=== PATIENT | female | born 2000 | race Caucasian/White ===

== ENCOUNTER → 2021-07-01 10:45 | Outpatient (CLI) | payer BC, SELFPAY ==
--- NOTE | ~2021-07-01 | US_ITS ---
EXAMINATION: US transvaginal EXAM DATE: 07/01/2021 11:33 INDICATION: Right ovarian cyst. Right lower quadrant pain. TECHNIQUE: Pelvic transvaginal sonogram was performed. There are multiple grayscale and Doppler imag es available for interpretation. There is no prior study for comparison. FINDINGS: Uterus measures 6.8 x 3.4 x 4.1 cm, with IUD centrally located inside the endometrial cavi ty. Endometrial stripe measures 3 mm, within normal limits. There is no free pelvic fluid. Right adnexa: The ovary measures 3.8 x 2.7 x 3.3 cm and is morphologically normal. Ovarian vascular f low confirmed. Left adnexa: The ovary measures 1.7 x 1.4 x 1.9 cm and is morphologically normal. Ovarian vascular fl ow confirmed. IMPRESSION: Unremarkable pelvic ultrasound exam. Reviewed, dictated and finalized at location B. REMOVER
== END ==
PROVIDERS: Visit Provider Nurse Practitioner
DX: N83.201 Unspecified ovarian cyst, right side (principal)
CPT/HCPCS: 76830

== ENCOUNTER → 2021-09-01 12:04 | Outpatient (CLI) | payer BC, SELFPAY ==
--- NOTE | ~2021-09-01 | US_ITS ---
EXAMINATION: US transvaginal DATE: 09/01/2021 12:31 INDICATION: Missing IUD strings TECHNIQUE: Multiple endovaginal sonographic images of the pelvis were obtained. COMPARISON: 07/01/2021 FINDINGS: The uterus measures 5.2 x 3.4 x 3.7 cm. The endometrial complex measures 5 mm. The IUD appe ars to be present in the lower uterine segment. The right ovary measures 4.7 x 2.9 x 3.3 cm. The left ovary measures 4.2 x 1.8 x 2.1 cm. There is normal vascular flow in the ovaries. There is no free fl uid in the pelvis. IMPRESSION: 1. IUD appears to be in the lower uterine segment. Reviewed, dictated and finalized at location A. E TOOL DRILLER
== END ==
PROVIDERS: Visit Provider Nurse Practitioner
DX: Z30.431 Encounter for routine checking of intrauterine contraceptive device (principal)
CPT/HCPCS: 76830

== ENCOUNTER → 2021-09-19 09:03 | Outpatient (CLI) | payer BC, SELFPAY ==
--- NOTE | ~2021-09-19 | XR_ITS ---
XR shoulder LT min 2V DATE: 09/19/2021 09:32 INDICATION: Left shoulder pain TECHNIQUE: 4 views COMPARISON: None FINDINGS: No fracture or dislocation, periosteal reaction or bone destruction or abnormal soft tissue calcification. IMPRESSION: Negative Reviewed, dictated and finalized at location A. RAISING SPECIALIST IMPRESSION: Negative
== END ==
PROVIDERS: PCP Nurse Practitioner; Visit Provider Nurse Practitioner
DX: M25.512 Pain in left shoulder (principal)
CPT/HCPCS: 73030

== ENCOUNTER 2022-04-24 14:41 | Outpatient (CLI) | payer BC, SELFPAY ==
--- NOTE | ~2022-04-24 | US_ITS ---
EXAMINATION: US pelvic complete w TV DATE: 04/24/2022 15:37 INDICATION: Right lower quadrant pain Comparison:Ultrasound dated 09/01/2021 TECHNIQUE: Multiple transabdominal and endovaginal sonographic images of the pelvis performed. FINDINGS: The uterus measures 6.4 x 3.3 x 4 cm. The endometrial complex measures 7 mm. There is an IU D in the endometrium. The right ovary measures 3.9 x 1.8 x 1.5 cm and the left ovary measures 4 x 2.6 x 2.4 cm. There are small follicles in each ovary. Normal doppler signal in both ovaries. There is no free fluid in the pelvis. There are no abnormal masses seen on either side. IMPRESSION: 1. Unremarkable pelvic ultrasound. Reviewed, dictated and finalized at location A.
== END 2022-04-24 14:42 | disposition home or self-care (01) ==
PROVIDERS: PCP Nurse Practitioner
DX: R10.31 Right lower quadrant pain (principal)
CPT/HCPCS: 76830; 76856

== ENCOUNTER → 2022-12-23 10:11 | Outpatient (CLI) | payer BC, SELFPAY ==
--- NOTE | ~2022-12-23 | US_ITS ---
Pelvic ultrasound. Clinical History: Pelvic pain Technique: Realtime transabdominal and transvaginal scanning of the pelvis was performed. Color flow Doppler and Doppler spectral analysis were performed. Findings: The uterus is anteverted. The endometrial stripe has a thickness of 8 mm. IUD present in t he imaged cavity. No focal mass is identified. The right ovary measures 1.9 x 1.5 x 2.0 cm. No significant right ovarian or adnexal mass is seen. The left ovary is not visualized No significant left ovarian or adnexal mass is seen. There is no evidence of free fluid in the cul de sac. Impression: IUD in place. Left ovary not seen. Reviewed, dictated and finalized at location . Impression: IUD in place. Left ovary not seen.
== END ==
PROVIDERS: PCP Nurse Practitioner; Visit Provider Nurse Practitioner
DX: R10.2 Pelvic and perineal pain (principal); Z97.5 Presence of (intrauterine) contraceptive device
CPT/HCPCS: 76830

== ENCOUNTER 2023-01-12 21:41 | Emergency (ER) | payer BC, SELFPAY ==
[2023-01-12 21:43] VITALS: BP 144/84; PULSE 76; RESP 15; TEMP 36.6; O2SAT 100
--- NOTE | 2023-01-12 22:46 | PC.NURSE ---
patient left without being seen. states her public relations coordinator doctor called in a nebulizer for her. advised to return if needed.
== END 2023-01-12 22:46 | disposition left against medical advice (07) ==
PROVIDERS: PCP Nurse Practitioner
DX: R06.02 Shortness of breath (principal)
CPT/HCPCS: 99199

== ENCOUNTER 2023-10-30 11:48 | Outpatient (CLI) | payer BC, SELFPAY ==
--- NOTE | ~2023-10-30 | US_ITS ---
EXAMINATION: US pelvic complete DATE: 10/30/2023 12:05 INDICATION: Abdominal uterine bleeding. TECHNIQUE: Multiple transabdominal sonographic images of the pelvis were obtained. COMPARISON: Pelvis ultrasound 12/23/22 FINDINGS: The uterus measures 7.4 x 3.1 x 4.5 cm. There is no free fluid in the pelvis. The endometrial complex measures 4 mm in thickness. The right ovary measures 3.7 x 1.6 x 3.6 cm. The left ovary measures 4.6 x 1.9 x 3.7 cm. There is normal vascular flow in the ovaries. IMPRESSION: 1. No etiology for abnormal uterine bleeding. 2. Intrauterine device in expected position. Reviewed, dictated and finalized at location E.
== END 2023-10-30 11:49 ==
LOC: MICIMG 11:49
PROVIDERS: PCP Nurse Practitioner; Visit Provider Nurse Practitioner
DX: N93.8 Other specified abnormal uterine and vaginal bleeding (principal); Z97.5 Presence of (intrauterine) contraceptive device
CPT/HCPCS: 76856

== ENCOUNTER 2025-04-19 13:17 | Emergency (ER) | payer BC, SELFPAY ==
[2025-04-19 13:30] VITALS: BP 130/87; PULSE 81; RESP 16; TEMP 36.5; O2SAT 100
--- NOTE | 2025-04-19 13:50 | ED.SKABFB ---
HPI - Skin/Abscess/Foreign Bdy General Chief complaint: Skin/Abscess/Foreign Body Stated complaint: Bug bites Time Seen by Provider: 04/19/25 13:30 Source: patient and RN notes reviewed Mode of arrival: ambulatory Limitations: no limitations History of Present Illness HPI narrative: 25-year-old female presents [facility] complaining of rash on her arms for approximally 1 month. Said start her left upper arm and has yet to resolve. She said over the last week she has developed more to her left lower and right lower arms along with her left hand. Patient states the rash is pruritic. Patient says the start out raised in flat now been changed from red to the bruise/purplish color. Patient denies any pain. Patient reports she had a cough 3 weeks ago but that is resolved. Denies any other upper respiratory symptoms, cough, fevers, body aches, chills, muscle aches, joint pain, abdominal pain, nausea, vomiting, chest pain difficulty breathing, or in her symptoms. Patient denies any new medications, she states she only takes it daily vitamin-D. Patient does not believe she is being bit by something in the house, she has no concerns bedbugs. Patient denies any tick bites or recent hiking but [place] Patient's his hydrocortisone cream and anti itch cream helps with the symptoms. Patient has a history of a tonsillectomy. Related Data Allergies Allergy/AdvReac Type Severity Reaction Status Date / Time prednisone AdvReac Nausea and Verified 04/19/25 13:37 Vomiting Review of Systems Review of Systems: CONSTITUTIONAL: Denies fever, chills, or sweats. EYES: Denies visual changes, redness, or discharge. ENT: Denies rhinorrhea, congestion, sore throat, or otalgia. CARDIOVASCULAR: Denies chest pain, palpitations, or edema. RESPIRATORY: Denies cough or dyspnea. GASTROINTESTINAL: Denies abdominal pain, nausea, vomiting, or diarrhea. GENITOURINARY: Denies dysuria or hematuria. SKIN: Positive for rash and itching. MUSCULOSKELETAL: Denies back pain, joint pain, or myalgia. NEUROLOGIC: Denies headache, numbness, or weakness. PSYCHIATRIC: Denies anxiety or depression. All other systems reviewed are negative, except as documented in HPI. [facility] Comments At the time of my signature, I reviewed and agree with the nursing past medical, surgical, social, and family history. There is no relevant family history pertinent to the patient complaint. Exam Narrative: GENERAL: This is a well-nourished, well-developed adult, in no apparent distress. They are non ill-appearing, nontoxic appearing. HEAD: normocephalic, atraumatic. EYES: Sclera clear/white. Conjunctiva normal. Vision is grossly intact. Extraocular movements intact EARS: External ears normal, Hearing grossly intact. Auditory canals are clear without redness or drainage. TMs pearly miranda with good cone of light. No erythema or swelling, no suppuration. TMs are intact. NOSE: External nose normal. Nasal turbinates without redness or swelling. No rhinorrhea. THROAT: Mucous membranes moist, posterior pharynx mildly injected with exudate present. No tonsils present. Uvula midline. NECK: Neck supple, non-tender without lymphadenopathy, masses or thyromegaly. CARDIOVASCULAR: Regular rate and rhythm. No clicks, gallops, rubs, or murmurs. Normal S1 and S2. RESPIRATORY: Respiratory rate normal, respiratory effort nonlabored, no respiratory distress. Lung sounds are clear to auscultation. No adventitious lung sounds. Lung sounds equal bilaterally. SKIN: Bilateral arms: Annular/circular macular lesions with central nodules present with 1 on patient's left upper arm, 1 on the patient's left lower arm, 7 present on the patient's left dorsal hand and 3 present to right lower forearm. The varying sizes measuring approximately 2 cm x 2 cm to 4 cm x 4 cm. No area of fluctuance, no induration, there nontender. They vary individually with shades of red, pink, and purple. No raised borders, no central clearance. No other suspicious lesions are rashes present the patient's extremities or body. NEURO: awake, alert, and oriented to person, place and time. There were no obvious focal neurologic abnormalities. EXTREMITIES: No joint tenderness, effusion, or edema noted. Course Course Emergency Course: Portions of this record may have been created with voice recognition software Level of Care: Express Care Visit Vital Signs Vital signs: Vital Signs Temperature 97.7 F 04/19/25 13:30 Pulse Rate 81 04/19/25 13:30 Respiratory Rate 16 04/19/25 13:30 Blood Pressure 130/87 04/19/25 13:30 Pulse Oximetry 100 04/19/25 13:30 Temperature 97.7 F 04/19/25 13:30 Pulse Rate 81 04/19/25 13:30 Respiratory Rate 16 04/19/25 13:30 Blood Pressure 130/87 04/19/25 13:30 Pulse Oximetry 100 04/19/25 13:30 Reviewed MDM - Skin/Abscess/Foreign Bdy MDM Narrative Medical decision making narrative: Patient patient reports her recent upper respiratory illness but denies any sore throat, stiff her symptoms resolved the month ago. Patient denies any tick bites or recent hiking. She does states [place]. Patient denies any pain to the rash reports there pruritic. No raised borders, no central clearance. Patient is exhibiting no systemic symptoms. Patient nontoxic appearing, no apparent distress. No other rash or lesions present to the patient's body other than her arms, left hand. Patient denies any significant past medical problems. Rapid strep obtained due to exudate and erythema to the posterior pharynx. Her rapid strep was positive. Patient likely has erythema nodosum shows likely from a strep pharyngitis infection. Will treat her with amoxicillin. Advised close follow-up with PCP. Patient says she can likely get an appointment tomorrow. Discussed strict ER precautions especially if she develops chest pains, breathing problems, abnormal movements, worsening rash or significant change in the rash, severe joint pains/arthritis, fevers, worsening symptoms, or any serious concerns. Discussed physical exam findings. Advised supportive measures and signs/symptoms to go to the ER. Pt is appropriate for outpt treatment and f/u. Differential Diagnosis Differential diagnosis: Likely viral exanthem, dermatophytosis and other (Erythema nodosum, erythema multiform, tick-borne illness, strep throat) Lab Data Attestation: I reviewed the patient's lab results. Labs: Lab Results 04/19/25 Range/Units 13:54 POC Grp A Strep Screen Positive (Negative) Critical Care Time Critical Care Time Critical Care Time: No Discharge Plan Discharge Clinical Impression: Strep throat, Erythema nodosum Patient Disposition: Home Condition: Stable Instructions: Antibiotic Form, Strep Throat (ED) Additional Instructions: You tested positive for strep throat. ?Please take the amoxicillin as prescribed until gone. ?You will be contagious for 24 hours after starting the medication. ?After 24 hours on antibiotics throw tooth brush away and start using a new one. Wash your sheets and cup/water bottle that is used daily. Do not share drinks. Take Tylenol or Ibuprofen for pain or fever, follow instructions on the label. Rest and stay hydrated. ?Follow up with your PCP in 3 days if symptoms are not improving. ?Go to the ER immediately if you develop worsening symptoms such as shortness of breath, chest pains, joint pain, confusion, abnormal movements, fevers, difficulty swallowing, or any serious concerns. The rash is likely related to the strep throat, this conditions called erythema nodosum which can occur from strep infections. Nodules will resolve spontaneously without scarring within 8 weeks. They may bruise which is known as erythema contusiformis which will also resolve on its own, the skin may remain hyperpigmented for weeks to or months before resolving. You may apply anti itch cream as needed for the itchiness. Follow instructions on the bottle. Patient Language: Albanian Prescriptions: New amoxicillin 500 mg tablet 500 mg PO Q12H 10 Days Qty: 20 0RF Follow-up/Referrals: Moises,ALYSSA Salas [Primary Care Provider, Unknown] Stand Alone Forms: Work/School Release IP Time of Disposition: 14:20
[2025-04-19 14:06] LABS: EDSTREPNEGPOS1 Positive (Negative)
== END 2025-04-19 14:25 | disposition home or self-care (01) ==
PROVIDERS: PCP Nurse Practitioner
DX: J02.0 Streptococcal pharyngitis (principal); L52 Erythema nodosum
CPT/HCPCS: 87880; 99203; G0463